=== PATIENT | male | born 1990 | race Caucasian/White ===

== ENCOUNTER → 2020-04-18 08:09 | Outpatient (CLI) | payer OTHER, SELFPAY ==
[2020-04-18 09:20] LABS: Cholesterol 166 mg/dL (200); Glucose 94 mg/dL (74-106); High Density Lipoprotein 50 mg/dL; Triglycerides 73 mg/dL; Very Low Density Lipoprotein 15 mg/dL (5-40)
== END ==
PROVIDERS: PCP Family Medicine; Referring Provider Family Medicine; Visit Provider Family Medicine
DX: Z13.220 Encounter for screening for lipoid disorders (principal); Z13.1 Encounter for screening for diabetes mellitus
CPT/HCPCS: 36415; 80061; 82947

== ENCOUNTER → 2021-04-29 15:41 | Outpatient (CLI) | payer OTHER, SELFPAY ==
[2021-04-29 17:49] LABS: Cholesterol 171 mg/dL (200); Glucose 69 mg/dL (74-106); High Density Lipoprotein 42 mg/dL; Triglycerides 205 mg/dL; Very Low Density Lipoprotein 41 mg/dL (5-40)
== END ==
PROVIDERS: PCP Family Medicine; Referring Provider Family Medicine; Visit Provider Family Medicine
DX: Z13.220 Encounter for screening for lipoid disorders (principal)
CPT/HCPCS: 36415; 80061; 82947